=== PATIENT | male | born 1995 | race Caucasian/White ===

== ENCOUNTER 2024-06-23 16:20 | Emergency (ER) | payer OTHER ==
[~2024-06-23] VITALS: Ht 177.8 cm; Wt 67.3 kg
[2024-06-23 16:27] VITALS: BP 123/76; PULSE 72; RESP 16; TEMP 98.1; O2SAT 100
[2024-06-23] MEDS ORDERED: NO HOME MEDS (16:35)
== END 2024-06-23 16:51 | disposition home or self-care (01) ==
LOC: ER 16:22
DX: R10.9 Unspecified abdominal pain (principal); Z86.19 Personal history of other infectious and parasitic diseases
CPT/HCPCS: 99281